=== PATIENT | female | born 1995 | race Caucasian/White ===

== ENCOUNTER 2017-01-21 11:48 | Emergency (ER) | payer OTHER ==
[2017-01-21 11:53] VITALS: BP 123/73
--- NOTE | 2017-01-21 12:12 | ER Document Report ---
HPI - HPI Patient complains to provider of: uti Onset: Yesterday Onset/Duration: Gradual Quality of pain: Burning Pain Level: 2 Context: Complains of urinary frequency and dysuria that started yesterday. Patient states she has a history of frequent UTIs for which she has seen a urologist last May for this problem. Patient was recently treated for UTI 2 weeks ago with Bactrim. Patient states that the symptoms resolved and she thought she was better although she had a return of symptoms last night. Patient reports vomiting one time today. Patient denies any fever or back pain. Patient complains of bladder tenderness. Patient denies any concerns for possible sexually transmitted infection. Associated Symptoms: Other - Urinary frequency, dysuria. denies: Fever Exacerbated by: Denies Relieved by: Denies Similar symptoms previously: Yes Recently seen / treated by doctor: Yes - 2 wks ago - ROS ROS below otherwise negative: Yes Systems Reviewed and Negative: Yes All other systems reviewed and negative - CONSTITUTIONAL Constitutional: DENIES: Fever, Chills - NEURO Neurology: DENIES: Headache - GASTROINTESTINAL Gastrointestinal: REPORTS: Abdominal Pain - "bladder pain", Patient vomiting - x1 - URINARY Urinary: REPORTS: Dysuria, Frequency - MUSCULOSKELETAL Musculoskeletal: DENIES: Back Pain - DERM Skin Color: Normal Skin Problems: None Past Medical History - General Information source: Patient - Social History Smoking Status: Never Smoker Frequency of alcohol use: Occasional Drug Abuse: None Occupation: active duty Family History: Reviewed & Not Pertinent Patient has suicidal ideation: No Patient has homicidal ideation: No Renal/ Medical History: Reports: Other - frequenty uti. Denies: Hx Peritoneal Dialysis Surgical Hx: Negative Vertical Provider Document - CONSTITUTIONAL Agree With Documented VS: Yes Exam Limitations: No Limitations General Appearance: WD/WN, No Apparent Distress - INFECTION CONTROL TRAVEL OUTSIDE OF THE [place] IN LAST 30 DAYS: No - HEENT HEENT: Atraumatic, Normocephalic - NECK Neck: Normal Inspection, Supple - RESPIRATORY Respiratory: Breath Sounds Normal, No Respiratory Distress, Chest Non-Tender O2 Sat by Pulse Oximetry: 99 - CARDIOVASCULAR Cardiovascular: Regular Rate, Regular Rhythm, No Murmur - GI/ABDOMEN Gastrointestinal: Abdomen Soft, Abdomen Tender - suprapubic - BACK Back: Normal Inspection. negative: CVA Tenderness-Right, CVA Tenderness-Left - MUSCULOSKELETAL/EXTREMETIES Musculoskeletal/Extremeties: MAEW - NEURO Level of Consciousness: Awake, Alert, Appropriate Motor/Sensory: No Motor Deficit - DERM Integumentary: Warm, Dry, No Rash Course - Re-evaluation Re-evalutation: 01/21/17 12:12 Patient pelvic examination, patient denies any concerns about possible STI. - Vital Signs Vital signs: Temp Pulse Resp BP Pulse Ox 97.9 F 58 L 15 123/73 99 01/21/17 11:49 01/21/17 11:49 01/21/17 11:49 01/21/17 11:49 01/21/17 11:49 - Laboratory Laboratory results interpreted by me: 01/21/17 12:43 Labs- Entire Visit 01/21/17 12:07 Urine Color ORANGE Urine Appearance SLIGHTLY-CLOUDY Urine pH 6.0 Ur Specific [place] 1.023 Urine Protein 100 H Urine Glucose (UA) NEGATIVE Urine Ketones NEGATIVE Urine Blood LARGE H Urine Nitrite POSITIVE H Urine Bilirubin NEGATIVE Urine Urobilinogen 4.0 H Ur Leukocyte Esterase MODERATE H Urine WBC (Auto) 155 Urine RBC (Auto) >182 Urine Bacteria (Auto) TRACE Squamous Epi Cells Auto 2 U Non-Squamous Epis Auto 2 Urine Ascorbic Acid 40 H Urine HCG, Qual NEGATIVE 01/21/17 12:55 Discharge - Discharge Clinical Impression: UTI (urinary tract infection) Qualifiers: Urinary tract infection type: site unspecified Hematuria presence: with hematuria Qualified Code(s): N39.0 - Urinary tract infection, site not specified Condition: Stable Disposition: HOME, SELF-CARE Instructions: Urinary Tract Infection ([facility]), Augmentin ([facility]) Additional Instructions: Urine culture is pending, we will call if you need any different treatment return immediately for any new or worsening symptoms Followup with your primary care provider, call tomorrow to make a followup appointment Follow-up with a urologist for further evaluation of frequent UTIs Prescriptions: Amox Tr/Potassium Clavulanate [Augmentin 875-125 Tablet] 1 tab PO BID 7 Days Referrals: [facility] [Provider Group] - Follow up in 3-5 days
[2017-01-21 12:34] LABS: APPEARANCE,URINE SLIGHTLY-CLOUDY; BILIRUBIN,URINE NEGATIVE (NEGATIVE); GLUCOSE, URINE NEGATIVE (NEGATIVE); KETONES,URINE NEGATIVE (NEGATIVE); LEUKOCYTE ESTERASE,URINE MODERATE (NEGATIVE); NITRITE,URINE POSITIVE (NEGATIVE); PROTEIN,URINE 100 mg/dL (NEGATIVE); URINE SPECIFIC GRAVITY 1.023
[2017-01-21] MEDS ORDERED: CEFTRIAXONE INJ 1000 MG VIAL IM ONE (12:38)
[2017-01-21] MEDS ORDERED: AMOXICILLIN TR/POT CLAVULANATE 500-125 MG TAB PO ONE (12:42)
[2017-01-21] MEDS ORDERED: LIDOCAINE 1% INJ-PF (10 MG/ML) 30 ML SDV INJ ONE (12:42)
[2017-01-21] MEDS ORDERED: AMOXICILLIN TRIHYD 250 MG CAPSULE PO ONE (12:42)
== END 2017-01-21 13:21 | disposition home or self-care (01) ==
LOC: ER 11:48
DX: N39.0 Urinary tract infection, site not specified (principal); R31.9 Hematuria, unspecified; R11.10 Vomiting, unspecified; R30.0 Dysuria; R35.0 Frequency of micturition
CPT/HCPCS: 99283; 96372; 87086; 81025; 87088; 81001; 87186; J3490 ×2; J0696